=== PATIENT | female | born 2000 | race Hispanic/Latino ===

== ENCOUNTER 2019-06-20 14:51 | Outpatient (CLI) | payer OTHER ==
--- NOTE | 2019-06-20 16:18 | ULT ---
OB ULTRASOUND: 06/20/19 PROVIDED CLINICAL HISTORY: anatomy. FINDINGS: No comparisons. Single live intrauterine gestation is documented in vertex presentation with heart rate of 135 beats per minute. Placenta is posteriorly located without evidence for previa. Cervical length appears adeq uate. Amniotic fluid index is 14.1. Estimated gestational age based on today's examination is 20 week s, 1 day. Estimated weight is 343 +/- 50 grams. anatomic survey demonstrates a normal son ographic appearance to the head, heart, stomach, situs, kidneys, bladder, umbilical cord and co rd insertion, spine, lips/nose and upper and lower extremities. BIOMETRY: BPD 4.7 cm 20 weeks, 2 days Head circumference 15.6 cm 19 weeks, 2 days Abdominal circumference 14.5 cm 19 weeks, 6 days Femur length 3.5 cm 21 weeks, 1 day IMPRESSION: Single live intrauterine gestation as described. POS: BE
== END 2019-06-20 14:52 | disposition home or self-care (01) ==
LOC: BICULT 14:51
PROVIDERS: ATTEND Family Medicine
DX: Z34.02 Encounter for supervision of normal first pregnancy, second trimester (principal); Z3A.20 20 weeks gestation of pregnancy
CPT/HCPCS: 76805

== ENCOUNTER 2019-09-18 10:48 | Outpatient (CLI) | payer OTHER ==
--- NOTE | 2019-09-18 12:08 | ULT ---
Exam: Limited OB ultrasound greater than 14 weeks: HISTORY: IUGR FINDINGS: Single viable intrauterine fetus in cephalic presentation. Placenta is fundal and posterior. heart rate 144 bpm Amniotic fluid index 9.4. Cervical length 5.4 cm anatomy was not evaluated at this time. biometry: BPD: 7.1 cm--28 weeks 5 days Head circumference: 26.2 cm--28 weeks 4 days Abdominal circumference: 27.9 cm--32 weeks 0 days Femur length: 6.4 cm--33 weeks 1 day IMPRESSION: Gestational age average 30 weeks 5 days GRACE 11/22/2019
--- NOTE | 2019-09-18 12:10 | ULT ---
Exam: Umbilical artery vascular duplex with color and spectral Doppler imaging: HISTORY: IUGR Cord insert: Resistive index 0.61 Systolic/diastolic ratio 2.6 Mid cord: Resistive index 0.67 Systolic/diastolic ratio 3.0 Cord near placenta: Resistive index 0.64 Systolic/diastolic ratio 2.8. IMPRESSION: Resistive indices and systolic/diastolic ratios as above.
== END 2019-09-18 10:49 | disposition home or self-care (01) ==
LOC: BICULT 10:48
PROVIDERS: ATTEND Family Medicine
DX: O36.5930 Maternal care for other known or suspected poor fetal growth, third trimester, not applicable or unspecified (principal); Z3A.30 30 weeks gestation of pregnancy
CPT/HCPCS: 76815; 93975

== ENCOUNTER 2019-10-09 07:14 | Outpatient (CLI) | payer OTHER ==
--- NOTE | 2019-10-09 08:05 | ULT ---
ULTRASOUND OBSTETRICAL COMPLETE: DOPPLER DUPLEX UMBILICAL ARTERY: DATE: 10/09/2019 HISTORY: 19-year-old female ICD-10: "O36.5930, encounter for maternal carrier for poor growth in singlet on in third trimester. Comments: MARVIN, growth in percentiles, umbilical artery Dopplers. " TECHNIQUE: Grayscale, color-flow, and spectral analysis, of intrauterine contents and umbilical artery. FINDINGS: number: gonzales lie: Cephalic Maternal cervix: 3 cm. Closed. Placenta: Posterior fundal. No placenta previa. Amniotic fluid volume: MARVIN = 8.5cm heart rate: 133 bpm The following anatomy is visualized, with no evidence of anomalies: Head, stomach, and bladder. The rest of the anatomy was not evaluated. biometry: Biparietal diameter (BPD): 7.7 cm 31 w 1 d Head circumference (HC): 28.3 cm 31 w 1 d Abdominal circumference (AC): 29.6 cm 33 w 5 d Femur length (FL): 6.9 cm 35 w 5 d Average ultrasound age (AUA): 33 w 0 d Estimated date of delivery (GRACE): 11/27/2019 Estimated weight (EFW): 2242 g +/- 327 g LMP: 01/23/2019 Gestational age by LMP: 37w .0d LMP percentile: 2% Growth percentiles for individual biometric parameters not available. Umbilical artery Doppler parameters: At placenta: R I: 0.61, S/D: 2.5 At fetus: RI: 0.67, S/D: 3.0 Mid: RI: 0.66, S/D: 3.0 IMPRESSION: 1) Live 3rd trimester intrauterine gestation. 2) Estimated gestational age of 33 weeks, 0 days 3) cephalic lie. 4) umbilical artery Doppler parameters as listed above. 5) relative to LMP, overall growth percentile is calculated as only 2%.
== END 2019-10-09 07:15 | disposition home or self-care (01) ==
LOC: BICULT 07:14
PROVIDERS: ATTEND Family Medicine
DX: O36.5930 Maternal care for other known or suspected poor fetal growth, third trimester, not applicable or unspecified (principal); Z3A.33 33 weeks gestation of pregnancy
CPT/HCPCS: 76815; 93975